=== PATIENT | female | born 1950 | race Caucasian/White ===

== ENCOUNTER 2018-07-18 00:02 | Outpatient (CLI) | payer MEDICARE ==
[2018-07-18 11:24] LABS: Hemoglobin 13.7 g/dL (12.0-16.0); Mean Corpuscular HGB CONC 30.3 g/dL (32.0-36.0); Mean Corpuscular Hemoglobin 29.2 pg (27.0-31.0); Mean Corpuscular Volume 96.5 fL (78.0-98.0); Mean Platelet Volume 8.4 fL (7.4-10.4); Platelet Count 156 thou/uL (130-400); RBC Distribution Width 12.6 % (11.5-14.5); Red Blood Cell (RBC) Count 4.68 mill/uL (4.20-5.40); White Blood Cell (WBC) Count 7.4 thou/uL (4.8-10.8)
[2018-07-18 11:37] LABS: Prothrombin Time 13.3 SEC (12.0-14.7)
[2018-07-18 11:38] LABS: PTT 22.7 SEC (22.9-36.1)
[2018-07-18 11:58] LABS: Anion Gap 9 mmol/L (10-20); BUN (Urea Nitrogen) 24 mg/dL (9.8-20.1); Calc. Creatinine Clearance 0 mL/min (70-130); Calcium 9.2 mg/dL (7.8-10.44); Carbon Dioxide 29 mmol/L (23-31); Chloride 106 mmol/L (98-107); Estimated GFR-MDRD 62; Glucose 68 mg/dL (80-115); Potassium 4.1 mmol/L (3.5-5.1); Sodium 140 mmol/L (136-145)
== END 2018-07-18 00:03 | disposition home or self-care (01) ==
LOC: LABBT 00:02
PROVIDERS: ATTEND Surgery
DX: Z01.818 Encounter for other preprocedural examination (principal); M54.16 Radiculopathy, lumbar region; M48.061 Spinal stenosis, lumbar region without neurogenic claudication
CPT/HCPCS: 80048; 85027; 85610; 85730; 93005; 93010

== ENCOUNTER 2018-07-19 08:28 | Day surgery (SDC) | payer MEDICARE ==
[2018-07-18 10:07] VITALS: BMI 26.3
[2018-07-19] MEDS ORDERED: Fentanyl 100 MCG/2 ML VIAL ONE ×4 (11:03→15:51)
[2018-07-19] MEDS ORDERED: Midazolam HCl 2 mg/2 ml Vial ONE ×2 (12:52→12:58)
[2018-07-19] MEDS ORDERED: Sodium Chloride 0.9% 10 ML ONE (13:09)
[2018-07-19] MEDS ORDERED: Thrombin 5000 UNITS/5 ML VIAL ONE (13:09)
[2018-07-19] MEDS ORDERED: Glycopyrrolate 0.2 MG/ML 5 ML SYRINGE ONE (15:26)
[2018-07-19] MEDS ORDERED: PROPOFOL 200 MG/20 ML VIAL ONE (15:26)
[2018-07-19] MEDS ORDERED: Dexamethasone 20 MG/5 ML VIAL ONE (15:26)
[2018-07-19] MEDS ORDERED: Lidocaine 1% PF 5 ML VIAL ONE (15:26)
[2018-07-19] MEDS ORDERED: ePHEDrine 50 MG/ML VIAL ONE (15:26)
[2018-07-19] MEDS ORDERED: Rocuronium Bromide 10 MG/ML (10ML VIAL) ONE (15:26)
[2018-07-19] MEDS ORDERED: Ondansetron PF 4 MG/2 ML Vial ONE (15:26)
[2018-07-19] MEDS ORDERED: Morphine Sulfate 2 MG/ML SYRINGE SLOW IVP PRN (15:50)
[2018-07-19] MEDS ORDERED: Promethazine HCl 25 MG/ML VIAL SLOW IVP PRN (15:50)
[2018-07-19] MEDS ORDERED: HYDROmorphone 2 MG/ML VIAL SLOW IVP PRN (15:50)
[2018-07-19] MEDS ORDERED: Ketorolac Tromethamine 30 MG/ML VIAL IVP PRN (15:50)
[2018-07-19] MEDS ORDERED: Promethazine HCl 25 MG/ML VIAL IM PRN ×2 (15:50→18:43)
[2018-07-19] MEDS ORDERED: Ondansetron HCl/PF 4 MG/2 ML Vial IVP PRN (15:50)
[2018-07-19] MEDS ORDERED: PACU-Morphine 4MG/ML VIAL SLOW IVP PRN (15:50)
[2018-07-19] MEDS ORDERED: Meperidine HCl/PF 25 MG/ML VIAL SLOW IVP PRN (15:50)
[2018-07-19] MEDS ORDERED: traMADol HCl 50 MG TAB PO PRN (15:54)
[2018-07-19] MEDS ORDERED: Mag-Al 1200 mg/1200 mg/30 ML UDCUP PO PRN (15:54)
[2018-07-19] MEDS ORDERED: Acetaminophen 325 MG TAB PO PRN (15:54)
[2018-07-19] MEDS ORDERED: Fleet Enema 133 ML BOT PR PRN (15:54)
[2018-07-19] MEDS ORDERED: Milk Of Magnesia 30 ML UDCUP PO PRN (15:54)
[2018-07-19] MEDS ORDERED: Bisacodyl 10 MG SUPP PR PRN (15:54)
[2018-07-19] MEDS ORDERED: Promethazine HCl 25 MG/ML VIAL IVPB PRN (15:54)
[2018-07-19] MEDS ORDERED: Zolpidem Tartrate 5 MG TAB PO PRN (15:58)
[2018-07-19] MEDS ORDERED: HYDROmorphone 2 MG/ML VIAL ONE (16:00)
[2018-07-19] MEDS: Sodium Chloride 0.9% 1,000 ML IV SCH (17:53)
[2018-07-19] MEDS: Morphine 4 MG/ML VIAL SLOW IVP PRN ×2 (18:21→23:03)
[2018-07-19] MEDS ORDERED: Ondansetron PF 4 MG/2 ML Vial SLOW IVP PRN (18:43)
[2018-07-19] MEDS: HYDROcodone/Acetaminophen 7.5/325 mg Tablet PO PRN (19:56)
[2018-07-19] MEDS: Hyoscyamine Sulfate SL 0.125 mg Tablet SL SCH (21:08)
[2018-07-19] MEDS: tiZANidine HCl 4 MG TAB PO PRN (21:12)
[2018-07-20] MEDS: Sodium Chloride 0.9% 1,000 ML IV SCH (05:05)
[2018-07-20] MEDS ORDERED: Levothyroxine Sodium 112 MCG TAB PO SCH (06:00)
[2018-07-20] MEDS: HYDROcodone/Acetaminophen 7.5/325 mg Tablet PO PRN (07:12)
[2018-07-20 07:36] VITALS: BP 152/84; TEMP 98.1
[2018-07-20] MEDS: tiZANidine HCl 4 MG TAB PO PRN (08:33)
[2018-07-20] MEDS ORDERED: Enoxaparin Sodium 40 MG/0.4 ML SYRINGE SC SCH (09:00)
--- NOTE | 2018-07-20 10:11 | PRG ---
DATE OF SERVICE: 07/20/2018 SUBJECTIVE: Ms. Dockery is doing well, postoperative day 1 from lumbar diskectomy decompression. We have initiated low-dose Lovenox given her history of DVT and pulmonary embolism. She will start her Eliquis in 1 week and she will do prophylactic Lovenox dosing for the next six days. I am very pleased with her outcome. Job ID: [id number]
[2018-07-20] MEDS: Hyoscyamine Sulfate SL 0.125 mg Tablet SL SCH (10:20)
--- NOTE | 2018-07-20 12:14 | OP ---
DATE OF PROCEDURE: 07/19/2018 OPERATING ROOM: OR 12. WOUND CLASSIFICATION: Type 1 wound. INSPECTOR SEMICONDUCTOR WAFER: Sachin Allan PA-C PREPROCEDURE DIAGNOSIS: Low back and left leg pain with left L4 and left L5 radiculopathy. POSTPROCEDURE DIAGNOSIS: Low back and left leg pain with left L4 and left L5 radiculopathy. PROCEDURES PERFORMED: 1. Left L3-L4 and left L4-L5 hemilaminotomies, foraminotomies, and diskectomies. 2. Use of operative microscope for microdissection. DESCRIPTION OF PROCEDURE: After informed consent was obtained from the patient, the patient was brought to the OR. Proper patient, pause, and identification were carried out. She was then placed under excellent general endotracheal anesthesia and positioned prone on the OR table. All appropriate points were padded. We identified the L3, L4, L5 segments. A linear conner was made out over this region. This area was sterilely cleansed, prepared, and draped. Proper patient, pause, and identification were carried out. The wound was then opened with a combination of sharp, monopolar, and blunt dissection. The left L3-L4 and left L4-L5 segments were exposed. Localization film confirmed area of interest. We then performed a left L3-L4 and left L4-L5 hemilaminotomies, foraminotomies, and diskectomy with excellent decompression of the common dural tube and the left L4 and left L5 nerve roots. Copious irrigation occurred throughout and diskectomies were performed. Use of operative microscope was performed for microdissection. The wound was copiously irrigated and hemostasis maximized. The wound was closed in anatomic layers following sprinkling of vancomycin powder. The patient then emerged from anesthesia. Job ID: [id number]
== END 2018-07-20 10:23 | disposition home or self-care (01) ==
LOC: SDC 08:28 → SJJU 15:50 → UNDOADMOB 15:50 → UNDODISOB 07-20 10:23 → SDC 07-20 10:23
PROVIDERS: ATTEND Surgery
PROC: 01NB0ZZ Release Lumbar Nerve, Open Approach (ICD-10-PCS; principal; 2018-07-19)
DX: M51.16 Intervertebral disc disorders with radiculopathy, lumbar region (principal); M54.2 Cervicalgia; Z86.718 Personal history of other venous thrombosis and embolism; Z86.711 Personal history of pulmonary embolism; Z79.899 Other long term (current) drug therapy; Z79.01 Long term (current) use of anticoagulants; Z88.0 Allergy status to penicillin; Z88.1 Allergy status to other antibiotic agents; Z88.2 Allergy status to sulfonamides; Z88.8 Allergy status to other drugs, medicaments and biological substances; Z91.018 Allergy to other foods; Z91.040 Latex allergy status; Z98.890 Other specified postprocedural states
CPT/HCPCS: 76000; J1100; J1170; J1650; J2001; J2250; J2270; J2405; J2550; J2704; J3010; J3370; J3490